=== PATIENT | female | born 1940 | race Caucasian/White ===

== ENCOUNTER 2018-03-21 06:04 | Day surgery (SDC) | payer OTHER, BC ==
[2018-03-18 18:14] VITALS: BMI 29.0
[2018-03-21] MEDS ORDERED: MIDAZOLAM HCL 2 MG/2 ML SINGLE DOSE VIAL ONE (07:14)
--- NOTE | 2018-03-21 09:41 | OP ---
Operative Note - Note: Operative Date: 03/21/18 Pre-Operative Diagnosis: Right kidney stone Operation: Right ESWL Findings: 7 mm Right kidney lower pole stone Post-Operative Diagnosis: Same as Pre-op Surgeon: Dorian Garcia Anesthesia: Fractional Estimated Blood Loss (mls): 0 Drains & Tubes with Location: none Operative Report Dictated: Yes
[2018-03-21 11:00] VITALS: BP 140/70; PULSE 70; TEMP 97.6
--- NOTE | 2018-04-10 17:10 | OP ---
DATE OF OPERATION: 03/21/2018 PREOPERATIVE DIAGNOSIS: Right renal stone. POSTOPERATIVE DIAGNOSIS: Right renal stone. PROCEDURE: Right extracorporeal shock-wave lithotripsy. ATTENDING: Enrico Conway MD ANESTHESIA: Fractional. OPERATION: The patient was brought in the operating room, placed in the supine position on the operating room table. Ultrasonography and fluoroscopy were performed. A 7-mm right lower pole stone was identified. Shock-wave lithotripsy was performed. Excellent fragmentation of the stone was noted under real-time ultrasonography and fluoroscopy. There were no complications noted. The disposition of the patient was to the recovery room. ENRICO CONWAY M.D. [id number]
== END 2018-03-21 10:59 | disposition home or self-care (01) ==
LOC: JASU-SURG 06:04
PROVIDERS: ATTEND Urology
PROC: 0TF3XZZ Fragmentation in Right Kidney Pelvis, External Approach (ICD-10-PCS; principal; 2018-03-21 08:00)
DX: N20.0 Calculus of kidney (principal)
CPT/HCPCS: 82962

== ENCOUNTER 2019-02-20 05:17 | Day surgery (SDC) | payer OTHER, BC ==
[2019-02-17 16:28] VITALS: BMI 28.6
[2019-02-20] MEDS ORDERED: MIDAZOLAM HCL 2 MG/2 ML SINGLE DOSE VIAL ONE (10:11)
[2019-02-20 11:09] VITALS: TEMP 97.6
--- NOTE | 2019-02-20 11:09 | OP ---
Operative Note - Note: Operative Date: 02/20/19 Pre-Operative Diagnosis: Right renal stone Operation: Right ESWL Findings: 8 mm right lower pole stone Post-Operative Diagnosis: Same as Pre-op Surgeon: Dorian Garcia Anesthesia: Fractional
[2019-02-20] MEDS ORDERED: ONDANSETRON 4 MG/2 ML VIAL ONE (11:42)
[2019-02-20] MEDS ORDERED: ONDANSETRON 4 MG/2 ML VIAL IVPUSH ONE (11:45)
--- NOTE | 2019-02-20 12:05 | OP ---
DATE OF OPERATION: 02/20/2019 PREOPERATIVE DIAGNOSIS: Right renal stone. POSTOPERATIVE DIAGNOSIS: Right renal stone. PROCEDURE: Right extracorporeal shock-wave lithotripsy. ATTENDING: Enrico Conway MD ANESTHESIA: Fractional. DESCRIPTION OF PROCEDURE: The patient was brought in the operating room, placed in a supine position on the operating room table. Ultrasonography and fluoroscopy were performed. An 8-mm right lower pole stone was identified. At this point, anesthesia and preoperative antibiotics were administered. Shock-wave lithotripsy was then started. No complications were noted. Excellent fragmentation of the stone was noted under real time ultrasonography and fluoroscopy. DISPOSITION: To the recovery room. ENRICO CONWAY M.D. [id number]
[2019-02-20 13:28] VITALS: BP 138/71; PULSE 68
== END 2019-02-20 13:00 | disposition home or self-care (01) ==
LOC: JASU-SURG 05:17
PROVIDERS: ATTEND Urology
PROC: 0TF3XZZ Fragmentation in Right Kidney Pelvis, External Approach (ICD-10-PCS; principal; 2019-02-20 10:15)
DX: N20.0 Calculus of kidney (principal); I10 Essential (primary) hypertension; E11.9 Type 2 diabetes mellitus without complications; Z79.84 Long term (current) use of oral hypoglycemic drugs
CPT/HCPCS: 82962

== ENCOUNTER 2020-07-08 04:12 | Day surgery (SDC) | payer OTHER, BC ==
[2020-07-04 17:16] VITALS: BMI 26.2
[2020-07-08] MEDS ORDERED: MIDAZOLAM HCL 2 MG/2 ML SINGLE DOSE VIAL ONE (07:59)
[2020-07-08 08:56] VITALS: TEMP 97.7
[2020-07-08 09:57] VITALS: BP 129/75; PULSE 63
== END 2020-07-08 10:00 | disposition home or self-care (01) ==
LOC: JASU-SURG 04:12
PROVIDERS: ATTEND Urology
PROC: 0TF3XZZ Fragmentation in Right Kidney Pelvis, External Approach (ICD-10-PCS; principal; 2020-07-08 08:00)
DX: N20.0 Calculus of kidney (principal); E11.9 Type 2 diabetes mellitus without complications; I10 Essential (primary) hypertension
CPT/HCPCS: 82962